=== PATIENT | male | born 1965 | race Caucasian/White ===

== ENCOUNTER 2023-05-27 19:44 | Inpatient (IN) | payer BC, SELFPAY ==
[2023-05-27 12:06] VITALS: BP 154/90
[2023-05-27 12:45] LABS: % Basophils 0.4 % (0-2); % Eosinophils 0.7 % (0-6); % Immature Granulocytes 0.3 % (0-0.5); % Monocytes 5.7 % (1.7-9.3); % Neutrophils 84.9 % (42.2-75.2); Absolute Eosinophils 0.1 10^3/uL (0-0.7); Absolute Lymphocytes 0.7 10^3/uL (1.2-3.4); Absolute Monocytes 0.5 10^3/uL (0.1-0.6); Absolute Neutrophils 7.8 10^3/uL (1.4-6.5); Hemoglobin 12.9 g/dL (13.0-18.0); Mean Corp Hgb Conc. 32.3 g/dL (33.0-37.0); Mean Corpuscular Hgb 22.3 pg (27.0-31.0); Mean Corpuscular Volume 69.2 fL (80.0-94.0); Mean Platelet Volume 11.5 fL (7.4-10.4); Nucleated Red Blood Cells % 0 % (-); Platelet Count 173 10^3/uL (130-400); Red Blood Cell Count 5.78 10^6/uL (4.70-6.10); Red Cell Dist. Width 15.2 % (11.5-14.5); White Blood Cell Count 9.2 10^3/uL (4.8-10.8)
[2023-05-27 12:59] LABS: ALT (SGPT) 37 U/L (0-50); AST (SGOT) 43 U/L (17-59); Albumin 4.5 g/dl (3.5-5.0); Alkaline Phosphatase 74 U/L (38-126); Blood Urea Nitrogen 18 mg/dl (9-20); Carbon Dioxide 24 mmol/L (22-30); Chloride 102 mmol/L (98-107); Glucose 106 mg/dl (70-99); Potassium 4.3 mmol/L (3.5-5.1); Sodium 134 mmol/L (135-145); Total Bilirubin 1.2 mg/dl (0.2-1.3); Total Protein 7.4 g/dl (6.3-8.2); eGFR > 60.00
[2023-05-27 13:41] LABS: Lipase 63 U/L (23-300)
--- NOTE | 2023-05-27 13:53 | ED.GENMED ---
History of Present Illness
General
Chief Complaint: Abdominal Pain
Source: patient
Exam Limitations: none
Time Seen by Provider: 05/27/23 13:29
Travel History
Have you had any contact with someone who has COVID-19?: No
Do you have any symptoms of coronavirus? Fever > 100 degrees, chills, cough, shortness of breath, sore throat, loss of taste or smell, muscle aches, or headache?: No
History of Present Illness
History of Present Illness:
57-year-old male otherwise fairly healthy presents with progressively worsening mid abdominal pain since this morning. There is no nausea. He has had normal bowel movements. No fever. The pain is a dull aching in nature mainly to the center of
his abdomen does not radiate to the back. He had decreased appetite today. No prior surgical history. Does have 1 episode of diverticulitis in the past.
Past History
Past History
ED Past Medical History: None
Social History
Tobacco: Non-smoker
Personal:
Living: with family
Employment: Employed
Phy Exam
Physical Exam
Physical Exam:
General: Well-appearing male no acute respiratory distress
HEENT: Normocephalic atraumatic
Heart: Regular rate and rhythm no murmurs
Lungs: Clear no wheeze
Abdomen: Mild periumbilical tenderness. No guarding or rebound normal bowel sounds nondistended no significant costovertebral angle tenderness
Skin: Warm no rash
Course
Orders/Labs/Results
Orders:
Orders
05/27/23 12:16
CMP [Comprehensive Metabolic Panel] Urgent
Complete Blood Count/With Diff Urgent
Lipase Urgent
05/27/23 13:48
CT Abd/pelvis W Iv Cont Urgent
Comment:
Reason For Exam: mid abdominal pain
05/27/23 15:50
Ketorolac [Toradol] 30 mg IV NOW STA
05/27/23 16:21
HYDROmorphone [Dilaudid] 0.5 mg IV NOW STA
05/27/23 16:32
Piperacillin/Tazo 3.375 Gram [Zosyn] 3.375 gram in 50 ml IV NOW
Abnormal Lab Results
05/27/23
12:16
Hgb 12.9 L g/dL
(13.0-18.0)
MCV 69.2 L fL
(80.0-94.0)
MCH 22.3 L pg
(27.0-31.0)
MCHC 32.3 L g/dL
(33.0-37.0)
RDW 15.2 H %
(11.5-14.5)
MPV 11.5 H fL
(7.4-10.4)
Absolute Neuts (auto) 7.8 H 10^3/uL
(1.4-6.5)
Absolute Lymphs (auto) 0.7 L 10^3/uL
(1.2-3.4)
Neutrophils % 84.9 H %
(42.2-75.2)
Lymphocytes % 8.0 L %
(20.5-51.1)
Sodium 134 L mmol/L
(135-145)
Glucose 106 H mg/dl
(70-99)
05/27/23 12:16
05/27/23 12:16
Vital Signs
Initial and Last Documented VS:
Initial Vital Signs
Temp Pulse Resp BP Pulse Ox
99.2 F 87 18 154/90 98
05/27/23 12:06 05/27/23 12:06 05/27/23 12:06 05/27/23 12:06 05/27/23 12:06
Last Documented Vital Signs
Temp Pulse Resp BP Pulse Ox
99.2 F 101 16 128/74 98
05/27/23 12:06 05/27/23 18:34 05/27/23 18:34 05/27/23 18:34 05/27/23 18:34
MDM/Problems Addressed
Differential Diagnosis Includes:
Abdominal pain. Consider constipation versus appendicitis versus diverticulitis. Do not suspect bowel obstruction
Will check labs. CT abdomen pending
*Critical Care Note
Total Time (30-74mins, 75-104mins- exclusive of procedures): Not Applicable
Update Note
Update Note:
Spoke with radiology regarding CT scan which is concerning for possible appendicitis. There is a tubular structure in the right lower quadrant measuring 1.2 cm in diameter with surrounding stranding. Patient did require some pain medicine. Will
contact general surgery.
Admit to general surgery for acute appendicitis.
ED Attending Note
-
Portions of this chart may have been created with voice recognition software.� Occasional wrong word or��sound alike� substitutions may have occurred due to the inherent limitations of voice recognition software.
Discharge Plan
Departure
Patient Disposition: Admit
Date of Disposition: 05/27/23
Time of Disposition: 19:01
Admit to: Med/Surg
Presentation/result/management discussed w/ accepting MD/: Jeferson
Discharge Problem:
Acute appendicitis
Prescriptions:
No Action
oxycodone-acetaminophen [Percocet] 1 EACH tablet
1 ea PO .Q6HRS Qty: 20 0RF
ibuprofen 600 MG tablet
600 mg PO .Q8HRS Qty: 30 0RF
Rx Instructions:
Take WITH food.
Referrals:
Miguel Deluna MD [Family Provider] -
Interventions
Interventions:
*Risk Screen - Suicide Last Done: 05/27/23 14:17
*General Assessment Last Done: 05/27/23 14:17
*Neglect/Abuse Screening Last Done: 05/27/23 14:17
ED- Fall Risk Assessment Last Done: 05/27/23 14:17
*ED COVID-19 Vaccine History Last Done: 05/27/23 12:06
RQ-Gxuvmt-Wbdnvlxzed Assessment Last Done: 05/27/23 14:17
Discharge Date and Time
Print Language: JAPANESE
[2023-05-27 18:34] VITALS: BP 128/74
[2023-05-27] MEDS: ZOSYN 50 IV (18:54)
--- NOTE | 2023-05-27 19:38 | HPS.HSE ---
Addendum entered and electronically signed by NATALIYA Edmond 05/28/23 01:17:
DVT prophylaxis: SCD's
Full Code
Original Note:
Family Physician
-
Family Physician: Miguel Deluna
Chief Complaint
-
Abdomen pain
History of Present Illness
57 y/o patient presents to ER with the c/o Abdomen pain since today morning. States he is been having 'pressure' like pain mainly around the umbilicus that hasn't radiated. Reports he has poor appetite and had one episode of yellow bile vomitus
since been in the ER. Last BM today without any problem. Denies fever, chills. Denies chest pain or shortness of breath. stated he is been having cough for few days and has been taking Mucinex which has resolved the severity. Denies exposure to
Covid or flu. No hx of surgeries. Has hx of Thalassemia and Diverticulitis.
CT Abd/Pelvis Evaluation markedly limited without oral contrast, blind-ending tubular structure in the right lower quadrant measuring 1.2 cm proximally at approximately 0.8 cm distally with some questionable minimal accompanying stranding. Findings
could represent mild/early acute uncomplicated appendicitis.
Medical History
Past Medical History
Past Medical History: Reports Other
Additional Past Medical History:
Diverticulitis, Thalassemia
Past Surgical History: Reports None
Social History
Tobacco: Non-smoker
Alcohol: None
Drug: None
Personal:
Living: With Family
Family History
Family History: Not pertinent
Allergies / Home Medications
Allergies reflects when Allergies were last updated in [facility].
Home Medications with original date entered in [facility]
Allergy/Medication List:
Allergies
Allergy/AdvReac Type Severity Reaction Status Date / Time
No Known Allergies Allergy Verified 05/27/23 12:10
Home Medications
Elderberry 2 gummy PO DAILY 05/27/23
Mucinex DM 1 tab PO [id number] PRN cough 05/27/23
ascorbic acid (vitamin C) 500 mg tablet (Vitamin C) 1,000 mg PO DAILY 05/27/23
dextromethorphan HBr 30 mg/5 mL oral liquid 60 mg PO [id number] PRN cough 05/27/23
psyllium seed (sugar) oral powder (Metamucil (sugar) oral powder) 1 tsp PO DAILY@1900 05/27/23
therapeutic multivitamin 1 tab PO DAILY 05/27/23
Review of Systems
-
History Source: Patient
A 12 point ROS was completed and negative except as noted: Yes
Constitutional: Reports No Symptoms
EENT: Reports No Symptoms
Respiratory: Reports Cough
Cardiac: Reports No Symptoms
Abdomen/GI: Reports Abdominal Pain (07/27)
: Reports No Symptoms
Musculoskeletal: Reports No Symptoms
Skin: Reports No Symptoms
Neurological: Reports No Symptoms
Endocrine: Reports No Symptoms
Hematologic/Lymphatic: Reports No Symptoms
Psych: Reports No Symptoms
Physical Exam
Vital Signs
Vital Signs
Temp Pulse Resp BP Pulse Ox
99.2 F 101 16 128/74 98
05/27/23 12:06 05/27/23 18:34 05/27/23 18:34 05/27/23 18:34 05/27/23 18:34
Physical Exam
General: Well Developed, Well Nourished and No Apparent Distress
HEENT: NormoCephalic, Moist mucous membranes and Atraumatic
Respiratory: Clear and Non Labored Respirations
Cardiac: S1/S2, Regular Rhythm and Rub
Breast: Deferred by me
GI: Soft, Non Distended, Normal Bowel Sounds and Tender (to palpation, mild periumbilical tenderness); No Organomegaly
Rectal: Deferred by Provider
Genito-urinary: No costovertebral tender
Musculoskeletal: No Clubbing, No Cyanosis and No Edema
Skin: Warm and Dry; No Rash
Neuro: Awake, Oriented, AO x 3 and Nonfocal/grossly intact
Hematologic/Lymphatic: No Lymphadenopathy
Psych: Calm and Intact Judgment/Insight
Laboratory Results
-
05/27/23 12:16
05/27/23 12:16
Laboratory Results
Total Bilirubin 1.2 mg/dl (0.2-1.3) 05/27/23 12:16
AST 43 U/L (17-59) 05/27/23 12:16
ALT 37 U/L (0-50) 05/27/23 12:16
Alkaline Phosphatase 74 U/L (38-126) 05/27/23 12:16
Lipase 63 U/L (23-300) 05/27/23 12:16
Data Reviewed
-
Diagnostic Radiology: Report Reviewed by me
Lab Data: Labs Reviewed by me
Impression/Plan
-
57 y/o male with Abdomen pain
# Abdomen pain likely due to Appendicitis
-Admit to Dr. Govea
-continue IV Zosyn
-continue IV fluids
-continue Dilaudid prn
-continue Zofran prn
-NPO
-labs in AM
# Mild cough
-Covid test
-Mucinex prn
[2023-05-27 20:12] LABS: COVID-19 Antigen Negative (Negative)
[2023-05-27 21:45] VITALS: BMI 32.4
--- NOTE | 2023-05-27 21:45 | PTCARENOTE ---
Patient arrived from ED via stretcher, weight obtained on balanced standing scale, patient ambulated to bed, VSS, admission history obtained by this RN, patient will be NPO at midnight for possible surgery.
[2023-05-27 21:55] VITALS: BP 124/78
[2023-05-27] MEDS: NSS 1000 IV (22:12)
[2023-05-27] MEDS: DILAUDID 0.5 MG IV (22:18)
[2023-05-27 23:09] VITALS: BP 138/66
[2023-05-28] VITALS (10 sets, daily range): BP systolic 106–129; BP diastolic 64–78
[2023-05-28] MEDS: ZOSYN 50 IV ×5 (00:13→23:28)
[2023-05-28] MEDS: DILAUDID 0.5 MG IV ×2 (03:21→08:56)
[2023-05-28 04:57] LABS: Hematocrit 35.5 % (39.0-52.0); Hemoglobin 11.8 g/dL (13.0-18.0); Mean Corp Hgb Conc. 33.2 g/dL (33.0-37.0); Mean Corpuscular Hgb 22.5 pg (27.0-31.0); Mean Corpuscular Volume 67.6 fL (80.0-94.0); Mean Platelet Volume 11.2 fL (7.4-10.4); Platelet Count 158 10^3/uL (130-400); Red Blood Cell Count 5.25 10^6/uL (4.70-6.10); White Blood Cell Count 13.1 10^3/uL (4.8-10.8)
[2023-05-28 05:27] LABS: Blood Urea Nitrogen 18 mg/dl (9-20); Calcium 8.3 mg/dl (8.4-10.2); Carbon Dioxide 25 mmol/L (22-30); Chloride 97 mmol/L (98-107); Estimated Creatinine Clearance 77 ml/min; Glucose 112 mg/dl (70-99); Sodium 131 mmol/L (135-145); eGFR > 60.00
--- NOTE | 2023-05-28 10:26 | W.PN.UPDATE ---
Update Note
Progress Note Update
Pt seen and evaluated at bedside. Feels about the same. TTP to RLQ on exam. Plan for lap appy today when OR available. Informed consent obtained.
Discussion of risks including but not limited to risk of bleeding, infection, injury to intra-abdominal structures, conversion to open, need for additional procedures. Expected recovery discussed as well.
Pt and verbalized understanding and agreed to proceed.
--- NOTE | 2023-05-28 15:02 | W.IMMPOSTOP ---
Surgical Immed Post Op Note
-
Primary Surgeon: Jeferson
Pre-op Diagnosis: Acute appendicitis
Post-op Diagnosis: Acute gangrenous appendicitis
Procedure Performed: Laparoscopic appendectomy
Anesthesia Type: GETA
Specimen / Cultures: Appendix
Estimated Blood Loss: 15cc
Complications: None immediate
Operative Findings: Gangrenous appendix densely adherent to pelvic sidewall; no pus, no obcvious perforation, no stool contamination, scant turbid fluid in pelvis evacuated
--- NOTE | 2023-05-28 15:03 | OR.RPT ---
Addendum entered and electronically signed by Rafal Govea MD 06/03/23 16:30:
CDI query: localized peritonitis was present
Original Note:
Operative Report
Operative Report
Primary Surgeon: Jeferson
Pre-op Diagnosis: Acute appendicitis
Post-op Diagnosis: Acute gangrenous appendicitis
Procedure Performed: Laparoscopic appendectomy
Anesthesia Type: GETA
Specimen / Cultures: Appendix
Estimated Blood Loss: 15cc
Complications: None immediate
Operative Findings: Gangrenous appendix densely adherent to pelvic sidewall; no pus, no obvious perforation, no stool contamination, scant turbid fluid in pelvis evacuated
Date of Surgery: 05/28/23
Indications: This 57M developed right lower quadrant abdominal pain and on workup was found to have acute appendicitis. Laparoscopic appendectomy was elected.
Description of procedure: The patient was placed on the operating table in the supine position. General anesthesia was induced. A time-out was completed verifying correct patient, procedure, site, positioning, and special equipment prior to
beginning this procedure. An orogastric tube was placed. The abdomen was prepped and draped in the usual sterile fashion. A stab incision was made in left upper quadrant and the Veress needle was inserted. Proper position was confirmed by aspiration
and saline meniscus test. The abdomen was insufflated with carbon dioxide to a pressure of 12 mmHg. The patient tolerated insufflation well.
A 5mm optical trocar was then inserted at the left lower quadrant. The laparoscope was inserted and the abdomen inspected. No injuries from initial trocar placement or Veress needle insertion were noted. Additional trocars were then inserted in the
following locations: a 12-mm trocar at the umbilicus and a 5-mm trocar midline in the suprapubic space. The abdomen was inspected and no abnormalities were found. The table was placed in the Trendelenburg position with the right side up. The
appendix was gangrenous in its entirety and plastered to the pelvic sidewall. It was gently bluntly swept away from the sidewall. The tip of the appendix was gently grasped with an atraumatic grasper and retracted toward the patient�s feet and
abdominal wall. This maneuver exposed the appendiceal blood supply which was controlled with the Ligasure device. Following this, a laparoscopic linear cutting stapler with a 45mm segundo load was deployed and used to transect the appendix at its base.
The appendix was placed in an endoscopic retrieval bag, removed through the umbilical port, and passed off the table as a specimen.
We then turned our attention to the staple line, which was noted to be hemostatic. The pelvis was inspected and scant turbid fluid was absorbed with a raytec and extracted from the abdomen. The umbilical trocar site was closed at the fascial level
laparoscopically with 2-0 PDS under direct vision. Secondary trocars were removed under direct vision and noted to be hemostatic. The laparoscope was withdrawn and the abdomen was allowed to collapse. The skin was closed with subcuticular sutures of
4-0 monocryl and topical skin adhesive. The orogastric tube was removed.
The patient tolerated the procedure well and was taken to the postanesthesia care unit in stable condition.
--- NOTE | 2023-05-28 15:47 | CM ---
Initial assessment completed with and parents. Patient was in OR. Patient lives with his in a 1 story home with basement and no stairs to enter. [employer] patient was independent, worked and drove. No DME in home and no in-home services. No
psychiatric hospitalizations in past. Pharmacy is [facility] on [address] in [place]. PCP is Miguel Deluna with [facility]. Anticipate no needs at discharge.
[2023-05-28] MEDS: NSS 1000 IV (16:11)
--- NOTE | 2023-05-28 16:19 | PTCARENOTE ---
Received patient from PACU around 1605 via bed in stable condition. Patient denied pain. Lap sites to abdomen with surgical glue C/D/I. SCDs and teds bilateral. Call baum in reach.
[2023-05-28] MEDS: ROXICODONE 5 MG PO (20:51)
[2023-05-29 03:01] VITALS: BP 111/68
[2023-05-29] MEDS: ZOSYN 50 IV ×2 (05:06→11:14)
[2023-05-29] MEDS: NSS 1000 IV (05:53)
[2023-05-29 07:05] VITALS: BP 114/68
--- NOTE | 2023-05-29 09:32 | W.PN.GS2 ---
Today's Communication / Plan
-
`
Assessment / Plan
-
Assessment: POD#1 s/p lap appy - gangrenous but not perforated
AFVSS
doing well post op
Plan: d/c home
7 days augmentin
d/c instructions reviewed
Subjective Data
-
Date of Service: May 29, 2023
pt seen and examined
sitting up comfortably in chair at bedside
eating breakfast
no nausea
+fl and BMs since OR
Objective Data
-
Intake and Output
05/28/23 05/29/23 05/30/23
06:59 06:59 06:59
Intake Total 1570 / 1570 1875 / 1875
Output Total 300 / 300
Balance 1570 / 1570 1575 / 1575
Intake:
Oral fluids 720 / 720
IV fluids (Total) 750 / 750 1675 / 1675
normosol 100 / 100
IV piggybacks 100 / 100 200 / 200
Output:
Urine, Voided 300 / 300
Other:
Number of approximated SMALL 1
amounts of urine
Number of approximated MODERATE 2 1
amounts of urine
Number of approximated LARGE 1
amounts of urine
Vital Signs
Temp Pulse Resp BP Pulse Ox
98.3 F 82 17 114/68 97
05/29/23 07:05 05/29/23 07:05 05/29/23 07:05 05/29/23 07:05 05/29/23 07:05
Lab Results
05/28/23 04:10
05/28/23 04:10
Calcium 8.3 mg/dl (8.4-10.2) L 05/28/23 04:10
Total Bilirubin 1.2 mg/dl (0.2-1.3) 05/27/23 12:16
AST 43 U/L (17-59) 05/27/23 12:16
ALT 37 U/L (0-50) 05/27/23 12:16
Alkaline Phosphatase 74 U/L (38-126) 05/27/23 12:16
Total Protein 7.4 g/dl (6.3-8.2) 05/27/23 12:16
Albumin 4.5 g/dl (3.5-5.0) 05/27/23 12:16
Physical Exam
-
NAD AAOx3
ABD: soft, ND, mild TTP
incisions with glue dressings
--- NOTE | 2023-05-29 09:38 | W.DS.TRANS ---
DC Summary - Cloud Administrator
-
Discharge Instructions:
Discharge Diagnosis/Procedures acute appendicitis, laparoscopic appendectomy
Diet As tolerated,Regular
Additional Diets smaller meals initially after surgery as
abdominal bloating/distention may be common the
first couple days
Activity No strenuous activity
Additional Activity no lifting over 20lbs for 3-4 weeks post op
Driving Restrictions No driving for 24 hours
Bathing Restrictions OK to Shower
Wound Care glue at surgical sites typically peels off in 2-
3 weeks
Instructions:
Stand-Alone Forms:
Changes to Home Medications: No
Discharge Medications:
DC Medications w/original date entered in [facility]
Elderberry 2 gummy PO DAILY 05/27/23
Mucinex DM 1 tab PO [id number] PRN cough 05/27/23
ascorbic acid (vitamin C) 500 mg tablet (Vitamin C) 1,000 mg PO DAILY 05/27/23
dextromethorphan HBr 30 mg/5 mL oral liquid 60 mg PO [id number] PRN cough 05/27/23
psyllium seed (sugar) oral powder (Metamucil (sugar) oral powder) 1 tsp PO DAILY@1900 05/27/23
therapeutic multivitamin 1 tab PO DAILY 05/27/23
acetaminophen 500 mg tablet (Tylenol Extra Strength) 1,000 mg (2 x 500 mg) PO Q6HPRN PRN mild pain #1 tab 05/29/23
amoxicillin 875 mg-potassium clavulanate 125 mg tablet 1 tab PO Q12 antibiotic #14 tabs 05/29/23
ibuprofen 200 mg tablet 400 mg (2 x 200 mg) PO Q6HPRN PRN moderate pain #1 tab 05/29/23
tramadol 50 mg tablet 50 mg PO Q6HPRN PRN severe pain/breakthrough pain #7 tabs 05/29/23
Home Medication Changes
Pending Results: No
[2023-05-29 11:42] VITALS: BP 129/62
--- NOTE | 2023-05-29 11:49 | PN.CDI ---
CDI
- -
CDI:
Physician Documentation Request
Admit Date: 05/27/23 19:44
Dear Doctor Jeferson,
Please review the following and provide your response in the progress notes.
Clinical Indicators:
- 05/27 Operative report 'The pelvis was inspected and scant turbid fluid was absorbed...and extracted from the abdomen'
- 'Acute gangrenous appendicitis'
- IV abx Zosyn
Please clarify the diagnosis with the above findings.
Peritonitis is/was present
Peritonitis not present
Other
Use of terms such as suspected, likely, concern for, or probable (associated with a specific diagnosis that is being evaluated, monitored, or treated as if it exists) are acceptable and can be coded in the inpatient setting, when documented at the
time of discharge.
Thank you,
Audrey Cuellar RN
CDI Specialist
Please use your independent medical judgment in providing your response.
--- NOTE | 2023-05-29 12:35 | CM ---
Patient has been medically cleared for discharge to home with no additional skilled services. Patient has arranged for transport home.
== END 2023-05-29 12:36 | disposition home or self-care (01) | DRG 399 ==
LOC: 2 SOUTH 19:44
PROVIDERS: Emergency Medicine; Nurse Practitioner Gerontology; ADMITTING PHYSICIAN Surgery; EMERGENCY PHYSICIAN Emergency Medicine; FAMILY PHYSICIAN Internal Medicine
PROC: 0DTJ4ZZ Resection of Appendix, Percutaneous Endoscopic Approach (ICD-10-PCS; 2023-05-28)
DX: K35.31 Acute appendicitis with localized peritonitis and gangrene, without perforation (principal); R05.9 Cough, unspecified; Z11.52 Encounter for screening for COVID-19; Z87.19 Personal history of other diseases of the digestive system
CPT/HCPCS: 88304; 74177; 80048; 80053; 83690; 85025; 85027; 87811; 96365; 99285; Q9967

== ENCOUNTER → 2023-06-11 11:49 | Outpatient (REF) | payer BC, SELFPAY ==
[2023-06-11 12:31] LABS: % Basophils 0.6 % (0-2); % Eosinophils 0.4 % (0-6); % Immature Granulocytes 0.5 % (0-0.5); % Lymphocytes 7.5 % (20.5-51.1); % Monocytes 9.3 % (1.7-9.3); % Neutrophils 81.7 % (42.2-75.2); Absolute Basophils 0.1 10^3/uL (0-0.2); Absolute Eosinophils 0.1 10^3/uL (0-0.7); Absolute Immature Granulocytes 0.1 10^3/uL (0-0.05); Absolute Monocytes 1.2 10^3/uL (0.1-0.6); Absolute Neutrophils 10.6 10^3/uL (1.4-6.5); Hematocrit 33.4 % (39.0-52.0); Hemoglobin 10.6 g/dL (13.0-18.0); Mean Corp Hgb Conc. 31.7 g/dL (33.0-37.0); Mean Corpuscular Hgb 21.8 pg (27.0-31.0); Mean Corpuscular Volume 68.7 fL (80.0-94.0); Mean Platelet Volume 10.2 fL (7.4-10.4); Nucleated Red Blood Cells % 0 % (-); Platelet Count 540 10^3/uL (130-400); Red Blood Cell Count 4.86 10^6/uL (4.70-6.10); Red Cell Dist. Width 14.6 % (11.5-14.5); White Blood Cell Count 12.9 10^3/uL (4.8-10.8)
[2023-06-11 14:23] LABS: Blood Urea Nitrogen 15 mg/dl (9-20); Carbon Dioxide 24 mmol/L (22-30); Chloride 101 mmol/L (98-107); Glucose 79 mg/dl (70-99); Potassium 4.9 mmol/L (3.5-5.1); Sodium 137 mmol/L (135-145); eGFR > 60.00
== END ==
LOC: REG 11:49
PROVIDERS: ATTENDING PHYSICIAN Surgery; FAMILY PHYSICIAN Internal Medicine
DX: Z90.49 Acquired absence of other specified parts of digestive tract (principal); R50.9 Fever, unspecified
CPT/HCPCS: 36415; 80048; 85025